=== PATIENT | female | born 1980 | race Caucasian/White ===

== ENCOUNTER 2017-03-21 09:57 | Day surgery (SDC) | payer BC ==
[~2017-03-21] VITALS: Ht 165.1 cm; Wt 61.2 kg
[~2017-03-21 09:57] MED LIST: MICRONOR0.35 MG PO; Motrin PO; NATALCARE RX1 TABLET PO
[2017-03-21 10:32] VITALS: BP 112/53
[2017-03-21 10:34] VITALS: BP 112/53
[2017-03-21] MEDS ORDERED: ENDOCET 5-3251 EACH PO (12:35)
[2017-03-21 13:20] VITALS: BP 126/80
[2017-03-21 13:45] VITALS: BP 129/73
== END 2017-03-21 13:50 | disposition home or self-care (01) ==
LOC: SDC
PROC: 0UBC7ZX Excision of Cervix, Via Natural or Artificial Opening, Diagnostic (ICD-10-PCS; principal; 2017-03-21)
DX: D06.1 Carcinoma in situ of exocervix (principal); N92.6 Irregular menstruation, unspecified; Z80.0 Family history of malignant neoplasm of digestive organs; F17.210 Nicotine dependence, cigarettes, uncomplicated; F41.8 Other specified anxiety disorders
CPT/HCPCS: 88305; 88307; J0131; J1100; J1885; J2250; J2405; J2765; J3010